=== PATIENT | male | born 1965 | race Caucasian/White ===

== ENCOUNTER → 2017-04-08 | Outpatient (CLI) | payer BC, OTHER | LOC: RAD 10:32 | DX: J98.6 Disorders of diaphragm (principal) ==

== ENCOUNTER → 2018-04-01 | Outpatient (CLI) | payer BC, OTHER | LOC: RAD 09:03 | DX: R06.00 Dyspnea, unspecified (principal) ==

== ENCOUNTER → 2019-04-15 | Outpatient (CLI) | payer BC, OTHER | LOC: RAD 07:43 | DX: R91.8 Other nonspecific abnormal finding of lung field (principal); Z88.8 Allergy status to other drugs, medicaments and biological substances ==

== ENCOUNTER → 2020-04-15 | Outpatient (CLI) | payer BC, OTHER | LOC: RAD 16:21 | PROVIDERS: ATTEND Internal Medicine | DX: R91.8 Other nonspecific abnormal finding of lung field (principal); R06.00 Dyspnea, unspecified ==

== ENCOUNTER → 2020-12-21 | Outpatient (CLI) | payer BC, OTHER | LOC: RAD 07:34 | PROVIDERS: ATTEND Internal Medicine | DX: J98.6 Disorders of diaphragm (principal); R06.00 Dyspnea, unspecified ==

== ENCOUNTER → 2021-01-30 | Outpatient (CLI) | payer BC, OTHER | LOC: SJCVCIMAG 08:18 | PROVIDERS: ATTEND Internal Medicine | DX: I07.1 Rheumatic tricuspid insufficiency (principal); R06.00 Dyspnea, unspecified; Z86.16 Personal history of COVID-19; Z79.899 Other long term (current) drug therapy; Z79.891 Long term (current) use of opiate analgesic ==